=== PATIENT | female | born 1975 | race Two or more races ===

== ENCOUNTER 2021-08-19 15:01 | Emergency (ER) | payer OTHER ==
[~2021-08-19] VITALS: Ht 162.6 cm; Wt 62.8 kg
[2021-08-19 15:15] VITALS: BP 109/66
--- NOTE | 2021-08-19 16:44 | NUR ---
PT SEEN IN TRIAGE. AWARE OF NEG COVID. TO BE DC
== END 2021-08-19 16:58 | disposition home or self-care (01) ==
LOC: ED 16:53
DX: B34.9 Viral infection, unspecified (principal); Z20.822 Contact with and (suspected) exposure to COVID-19
CPT/HCPCS: 87635; 99283